=== PATIENT | male | born 1995 | race Caucasian/White ===

== ENCOUNTER 2019-02-18 09:03 | Emergency (ER) | payer BC, OTHER ==
[2019-02-18 09:22] VITALS: BP 142/86
--- NOTE | 2019-02-18 09:42 | UC ---
Back Pain HPI - HPI Summary HPI Summary: 3 DAYS AGO WHILE OUT HIKING PATIENT FELL BACKWARDS AND LANDED ON A ROCK. STRUCK HIS RIGHT LOW BACK. THE GROUND WAS UNEVEN AND PATIENT NOW HAS PAIN DIFFUSELY FROM HIS UPPER BACK TO HIS LOWER BACK. HE DENIES ANY HEAD INJURY. NO LOC. HE SMOKES WEED DAILY AND SO STATES THE PAIN IS SOMEWHAT MUTED AT PRESENT. DENIES ANY SADDLE ANESTHESIA. NO NUMBNESS/TINGLING IN THE FEET. NO LOSS OF BOWEL OR BLADDER CONTROL. STATES PAIN IS JUST NOT IMPROVING AT ALL. - History of Current Complaint Chief Complaint: UCBackPain Stated Complaint: BACK PAIN Time Seen by Provider: 02/18/19 09:38 Hx Obtained From: Patient Onset/Duration: Sudden Onset, Lasting Days, Still Present Timing: Constant Severity Initially: Moderate Severity Currently: Moderate Pain Intensity: 6 Pain Scale Used: 0-10 Numeric Back Pain: Is Diffuse Character: Sharp Aggravating Factor(s): Movement Alleviating Factor(s): Rest Associated Signs And Symptoms: Positive: Negative - Allergies/Home Medications Allergies/Adverse Reactions: Allergies Allergy/AdvReac Type Severity Reaction Status Date / Time MS Bee Venom [Bee Venom] Allergy Hives Verified 02/18/19 09:22 skin so soft Allergy Rash Uncoded 02/18/19 09:22 PMH/Surg Hx/FS Hx/Imm Hx - Additional Past Medical History Additional PMH: ADD Neurological History: Seizures - Surgical History Surgical History: None - Family History Known Family History: Positive: Non-Contributory - Social History Alcohol Use: Rare Substance Use Type: Marijuana Smoking Status (MU): Former Smoker Type: Cigars Amount Used/How Often: 1-5 cigars/day Length of Time of Smoking/Using Tobacco: 2+ years Have You Smoked in the Last Year: Yes Review of Systems All Other Systems Reviewed And Are Negative: Yes Constitutional: Positive: Negative Skin: Positive: Negative Respiratory: Positive: Negative Cardiovascular: Positive: Negative Gastrointestinal: Positive: Negative Musculoskeletal: Positive: Arthralgia, Decreased ROM, Myalgia Physical Exam Triage Information Reviewed: Yes Appearance: Well-Appearing, No Pain Distress, Well-Nourished Vital Signs: Initial Vital Signs Temp 99.6 F 02/18/19 09:13 Pulse 99 02/18/19 09:13 Resp 18 02/18/19 09:13 BP 142/86 02/18/19 09:13 Pulse Ox 98 10/16/19 09:13 Vital Signs Reviewed: Yes Eyes: Positive: Conjunctiva Clear ENT: Positive: Hearing grossly normal Neck: Positive: Supple Respiratory: Positive: No respiratory distress, No accessory muscle use Cardiovascular: Positive: Pulses Normal Abdomen Description: Positive: Soft Musculoskeletal: Positive: No Edema, ROM Limited @ - BACK, Other: - MIDLY TENDER DIFFUSELY OVER PARASPINOUS MUSCLES Neurological: Positive: Alert, Muscle Tone Normal Psychological: Positive: Age Appropriate Behavior Skin: Negative: Rashes Diagnostics - Radiology CERVICAL/THORACIC/LUMBAR SPINE XRAYS Radiology Interpretation Completed By: Radiologist Summary of Radiographic Findings: UNREMARKABLE Back Pain Course/Dx - Course Course Of Treatment: PATIENT PRESENTS WITH 3 DAYS OF PAIN DIFFUSELY OVER HIS BACK AFTER FALLING ON UNEVEN GROUND AND LANDING ON A ROCK. X-RAYS OF HIS CERVICAL, THORACIC AND LUMBAR SPINE TODAY ARE ALL UNREMARKABLE. HE IS LIKELY SUSTAINED A SPRAIN OF HIS BACK. WILL TREAT WITH MUSCLE RELAXER AND NAPROXEN. ADVISED HEAT, REST, STRETCHING. TO THE ER WITHOUT FAIL IF SYMPTOMS WORSEN. - Differential Dx/Diagnosis Provider Diagnosis: Sprain of back Discharge ED - Sign-Out/Discharge Documenting (check all that apply): Patient Departure All imaging exams completed and their final reports reviewed: Yes - Discharge Plan Condition: Stable Disposition: HOME Prescriptions: Cyclobenzaprine TAB* [Flexeril TAB*] 10 mg PO BID PRN #30 tab PRN Reason: Pain Naproxen [Naproxen 500 mg tab] 500 mg PO BID PRN #30 tablet PRN Reason: Pain Patient Education Materials: Back Pain (ED) Forms: *Work Release Referrals: Lance Carlin MD [Primary Care Provider] - If Needed Additional Instructions: X-RAYS TODAY UNREMARKABLE. YOU LIKELY HAVE SUSTAINED A MUSCLE STRAIN/SPRAIN OF YOUR BACK FROM YOUR ACCIDENT. TAKE THE NAPROXEN TWICE DAILY PRESCRIBED FOR PAIN AND INFLAMMATION. TAKE MUSCLE RELAXER BEFORE BED. BE SURE TO GO THROUGH SLOW STRETCHING AND RANGE OF MOTION EXERCISES DAILY YOU ARE ABLE TO HELP PREVENT STIFFENING UP AND MAKING THE DISCOMFORT WORSE. GO TO THE ED WITHOUT FAIL IF YOU DEVELOP WORSENING NUMBNESS/TINGLING IN YOUR LEGS, NUMBNESS IN THE GENITAL REGION, LOSS OF BOWEL/BLADDER CONTROL, INTOLERABLE PAIN OR ANY OTHER CONCERNING SYMPTOMS. - Billing Disposition and Condition Condition: STABLE Disposition: Home
== END 2019-02-18 10:55 | disposition home or self-care (01) ==
LOC: UCEAST 09:03
DX: S39.82XA Other specified injuries of lower back, initial encounter (principal); S29.8XXA Other specified injuries of thorax, initial encounter; Z91.030 Bee allergy status; Z87.891 Personal history of nicotine dependence; W19.XXXA Unspecified fall, initial encounter; Y92.9 Unspecified place or not applicable
CPT/HCPCS: 72040; 72070; 72110; 99202; G0463

== ENCOUNTER 2019-05-22 07:40 | Emergency (ER) | payer BC ==
--- NOTE | 2019-05-22 08:57 | UC ---
Respiratory Complaint HPI - HPI Summary HPI Summary: 23 yo with 3 day hx of cough with phlegm with "black chunks" in it, associated with some chest tightness and mild shortness of breath. Hx of pneumonia as a teen. He has not had fever. Has felt unwell with decreased appetite and has missed 3 days of work. Stopped smoking nicotine products including vaping 3 weeks ago. He continues to smoke marijuana regularly. FH of asthma. - History of Current Complaint Chief Complaint: UCGeneralIllness Stated Complaint: COUGH,CONGESTION Time Seen by Provider: 05/22/19 08:48 Hx Obtained From: Patient Onset/Duration: Gradual Onset, Lasting Days - 3 Timing: Intermittent Episodes Pain Intensity: 0 Character: Cough: Productive, Sputum Description: - black flecks. Aggravating Factors: Exertion, Recumbent Position - Allergies/Home Medications Allergies/Adverse Reactions: Allergies Allergy/AdvReac Type Severity Reaction Status Date / Time bee venom protein (honey bee) Allergy Hives Verified 05/22/19 07:54 skin so soft Allergy Rash Uncoded 05/22/19 07:54 Home Medications: Home Medications NK [No Home Medications Reported] 05/22/19 [History Confirmed 05/22/19] PMH/Surg Hx/FS Hx/Imm Hx Previously Healthy: Yes - Surgical History Surgical History: None - Family History Known Family History: Positive: Respiratory Disease - asthma, Non-Contributory - Social History Occupation: Employed Full-time Lives: Alone Alcohol Use: Rare Substance Use Type: Marijuana Smoking Status (MU): Former Smoker Type: Cigars Amount Used/How Often: 1-5 cigars/day Length of Time of Smoking/Using Tobacco: 2+ years Have You Smoked in the Last Year: Yes When Did the Patient Quit Smoking/Using Tobacco: chewing Review of Systems All Other Systems Reviewed And Are Negative: Yes Constitutional: Positive: Fatigue, Other - appetite decreased, not eating a lot mostly because he does not have a lot of food in his house. Skin: Positive: Negative Eyes: Positive: Negative ENT: Positive: Sore Throat Respiratory: Positive: Shortness Of Breath, Cough Cardiovascular: Positive: Chest Pain - several days ago. Gastrointestinal: Positive: Negative Genitourinary: Positive: Negative Motor: Positive: Negative Physical Exam Triage Information Reviewed: Yes Appearance: No Pain Distress, Thin Vital Signs: Initial Vital Signs Temp 99 F 05/22/19 07:50 Pulse 74 05/22/19 07:50 Resp 17 05/22/19 07:50 BP 120/69 05/22/19 07:50 Pulse Ox 100 05/22/19 07:50 Eyes: Positive: Conjunctiva Clear ENT: Positive: Pharynx normal, TMs normal Neck: Positive: Supple, Nontender, No Lymphadenopathy Respiratory: Positive: Lungs clear, Normal breath sounds, No respiratory distress Cardiovascular: Positive: RRR, No Murmur Musculoskeletal Exam: Normal Neurological Exam: Normal Neurological: Positive: Alert, Muscle Tone Normal Psychological Exam: Normal Skin Exam: Normal Diagnostics - Radiology No standard instances Radiology Interpretation Completed By: Radiologist - Patient Name: ALFRED MALCOLM Medical Record#: [id number] Ordering Physician: Andreia Kirby MD Acct.#: [id number] : 1995 Age: 23 Sex: M Location: [facility] Exam Date: 05/22/19 0858 ADM Status: REG ER Order Information: CHEST PA & LAT 2 VWS Accession Number: [id number] CPT: 28164 HISTORY: 3 days of cough with black chunks in sputum COMPARISONS: None relevant available at the time of dictation. VIEWS : 4: Frontal dual-energy and lateral views of the chest. FINDINGS: CARDIOMEDIASTINAL SILHOUETTE: The cardiomediastinal silhouette is normal. GUILLERMO: The guillermo are normal. PLEURA: The costophrenic angles are sharp. No pleural abnormalities are noted. LUNG PARENCHYMA: The lungs are clear. ABDOMEN: The upper abdomen is clear. There is no subphrenic gas. BONES AND SOFT TISSUES: No bone or soft tissue abnormalities are noted. OTHER: None. IMPRESSION: NO ACTIVE CARDIOPULMONARY DISEASE. <Electronically signed by Dutch Payne MD in OV> [id number] Dictated By: Dutch Payne MD Dictated Date/Time: 05/22/19931 Transcribed Date/Time: 05/22/19931 Copy to: CC:Andreia Kirby MD; Lance Carlin MD Imaging - [facility] Imaging - [facility] Imaging - [facility] [address] [address] ph ([phone]) ph ([phone]) ph ([phone]) This report is only to be considered final once signed by the Provider(s) as displayed in the "<Electronically Signed by >" field (s). Absence of a signature indicates the report is in a draft status and still needs to be finalized. In the event this document was created by someone other than the signing Provider, the individual initiating the document will be listed in the "Entered by:" or "Dictated by:" corrigan. 1 of 1 Respiratory Course/Dx - Course Course Of Treatment: symptomatic treatment of viral uri, off work note given - Differential Dx/Diagnosis Differential Diagnosis/HQI/PQRI: Asthma, Bronchitis, Laryngitis, Lower Resp Infection Provider Diagnosis: URI (upper respiratory infection) Discharge ED - Sign-Out/Discharge Documenting (check all that apply): Patient Departure All imaging exams completed and their final reports reviewed: Yes - Discharge Plan Condition: Stable Disposition: HOME Patient Education Materials: Upper Respiratory Infection (ED) Forms: *Work Release Referrals: Lance Carlin MD [Primary Care Provider] - Additional Instructions: Continue rest and fluids for viral illness and ensure that you increase your food intake and drink lots of fluid. Follow up if you have fever or shortness of breath. - Billing Disposition and Condition Condition: STABLE Disposition: Home
[2019-05-22 10:02] VITALS: BP 135/65
== END 2019-05-22 10:02 | disposition home or self-care (01) ==
LOC: UCEAST 07:40
DX: J06.9 Acute upper respiratory infection, unspecified (principal); R53.83 Other fatigue; Z87.891 Personal history of nicotine dependence; Z91.030 Bee allergy status; Z91.09 Other allergy status, other than to drugs and biological substances
CPT/HCPCS: 71046; 99211; G0463

== ENCOUNTER 2019-08-19 12:03 | Emergency (ER) | payer SELFPAY ==
[2019-08-19 12:24] VITALS: BP 144/90
--- NOTE | 2019-08-19 12:30 | UC ---
Abdominal Pain Male HPI - HPI Summary HPI Summary: The patient is a 23-year-old male who missed work 2 days ago due to abdominal pain. His abdominal pain was primarily epigastric and it was associated with nausea but no vomiting. He tried to return to work yesterday however his employer told him he needed to note to return to work. He has been free of abdominal pain for greater than 24 hours. He denies any nausea vomiting or diarrhea. He denies any fever or chills. He denies any UTI symptoms. He has no URI symptoms. He has no known Covid 19 exposure. - History of Current Complaint Chief Complaint: UCGeneralIllness Stated Complaint: ABDOMINAL PAIN Time Seen by Provider: 08/19/19 12:07 Hx Obtained From: Patient Onset/Duration: Gradual Onset, Lasting Hours, Resolved - >24 hrs Timing: Constant Severity Initially: Moderate Severity Currently: None Pain Intensity: 0 Pain Scale Used: 0-10 Numeric Location: Epigastric Radiates: No Character: Burning, Cramping Aggravating Factor(s): Nothing Alleviating Factor(s): Spontaneous Resolution Associated Signs And Symptoms: Positive: Diaphoresis, Decreased Appetite - resolve, Nausea - resolved. Negative: Fever, Cough, Chest Pain, Dizzy, Back Pain, Constipation, Blood in Stool, Vomiting, Diarrhea, Penile Discharge - Allergies/Home Medications Allergies/Adverse Reactions: Allergies Allergy/AdvReac Type Severity Reaction Status Date / Time bee venom protein (honey bee) Allergy Hives Verified 08/19/19 12:25 skin so soft Allergy Rash Uncoded 08/19/19 12:25 Home Medications: Home Medications NK [No Home Medications Reported] 05/22/19 [History Confirmed 08/19/19] PMH/Surg Hx/FS Hx/Imm Hx Previously Healthy: Yes Psychological History: Bipolar Disorder - Surgical History Surgical History: None - Family History Known Family History: Positive: Hypertension, Respiratory Disease - asthma, Non- Contributory - Social History Alcohol Use: Rare Alcohol Amount: Quit 14 days ago Substance Use Type: Marijuana Smoking Status (MU): Light Every Day Tobacco Smoker Type: Cigars Amount Used/How Often: 1-5 cigars/day Length of Time of Smoking/Using Tobacco: 2+ years Have You Smoked in the Last Year: Yes When Did the Patient Quit Smoking/Using Tobacco: chewing Review of Systems All Other Systems Reviewed And Are Negative: Yes Constitutional: Positive: Negative Skin: Positive: Negative Eyes: Positive: Negative ENT: Positive: Negative Respiratory: Positive: Negative Cardiovascular: Positive: Negative Gastrointestinal: Positive: Negative Genitourinary: Positive: Negative Motor: Positive: Negative Neurovascular: Positive: Negative Musculoskeletal: Positive: Negative Neurological/Mental Status: Positive: Negative Psychological: Positive: Negative Physical Exam Triage Information Reviewed: Yes Appearance: Well-Appearing, No Pain Distress, Well-Nourished Vital Signs: Initial Vital Signs Temp 97.9 F 08/19/19 12:21 Pulse 79 08/19/19 12:21 Resp 16 08/19/19 12:21 BP 144/90 08/19/19 12:21 Pulse Ox 99 08/19/19 12:21 Vital Signs Reviewed: Yes Eyes: Positive: Conjunctiva Clear ENT: Positive: Hearing grossly normal, Uvula midline. Negative: Nasal congestion, Nasal drainage, Tonsillar swelling, Tonsillar exudate, Hoarse voice Dental Exam: Normal Neck: Positive: Supple, Nontender, No Lymphadenopathy Respiratory: Positive: Lungs clear, Normal breath sounds, No respiratory distress, No accessory muscle use Cardiovascular: Positive: RRR, No Murmur, Pulses Normal Abdomen Description: Positive: Nontender, No Organomegaly Bowel Sounds: Positive: Present Musculoskeletal: Positive: ROM Intact, No Edema Neurological: Positive: Alert Psychological Exam: Normal Skin Exam: Normal Abd Pain Male Course/Dx - Differential Dx/Clinical Impression Provider Diagnosis: Resolved abdominal pain Discharge ED - Sign-Out/Discharge Documenting (check all that apply): Patient Departure All imaging exams completed and their final reports reviewed: No Studies - Discharge Plan Condition: Stable Disposition: HOME Patient Education Materials: Abdominal Pain (ED) Forms: *Work Release Referrals: Lance Carlin MD [Primary Care Provider] - If Needed Additional Instructions: please get rechecked if symptoms recur - Billing Disposition and Condition Condition: STABLE Disposition: Home
== END 2019-08-19 12:40 | disposition home or self-care (01) ==
LOC: UCEAST 12:03
DX: R10.13 Epigastric pain (principal); R11.0 Nausea; Z91.030 Bee allergy status; Z91.09 Other allergy status, other than to drugs and biological substances; F17.290 Nicotine dependence, other tobacco product, uncomplicated
CPT/HCPCS: 99211; G0463